=== PATIENT | male | born 1970 | race Caucasian/White ===

== ENCOUNTER 2022-01-05 12:47 | Outpatient (CLI) | payer BC, SELFPAY ==
[2022-01-05 21:36] LABS: Albumin* 4.5 g/dL (3.3-5.0)
[2022-01-05 21:37] LABS: Chloride* 102 mmol/L (96-114); Sodium* 138 mmol/L (135-149)
[2022-01-05 21:39] LABS: Bilirubin Total* 0.4 mg/dL (0.1-1.5); Carbon Dioxide* 30 mmol/L (20-32); Cholesterol* 261 mg/dL (90-199); Creatinine* 0.9 mg/dL (0.5-1.5); Estimated Glomerular Filt Rate 103 ml/min
[2022-01-05 21:40] LABS: Alanine Aminotransferase* 29 U/L (4-50); Alkaline Phosphatase* 98 U/L (40-150); Aspartate Amino Transferase* 26 U/L (12-35); Blood Urea Nitrogen* 19 mg/dL (7-30); Glucose* 101 mg/dL (60-115); Total Protein* 7.2 g/dL (6.0-8.3); Triglycerides* 217 mg/dL (40-149)
[2022-01-05 21:41] LABS: Calcium* 9.6 mg/dL (8.4-10.6); HDL Cholesterol* 44 mg/dL (>=40); LDL Cholesterol Calculated 174 mg/dL (<100)
== END 2022-01-05 12:48 | disposition home or self-care (01) ==
PROVIDERS: PCP Physician Assistant Medical; Visit Provider Physician Assistant Medical
DX: E78.5 Hyperlipidemia, unspecified (principal)
CPT/HCPCS: 80053; 80061

== ENCOUNTER 2023-01-13 09:19 | Outpatient (CLI) | payer BC, SELFPAY | END 2023-01-13 09:20 | disposition home or self-care (01) | PROVIDERS: PCP Physician Assistant Medical; Visit Provider Family Medicine | DX: Z00.00 Encounter for general adult medical examination without abnormal findings (principal); E78.2 Mixed hyperlipidemia; Z12.5 Encounter for screening for malignant neoplasm of prostate | CPT/HCPCS: 80048; 80061; 84153 ==

== ENCOUNTER 2023-03-09 19:42 | Outpatient (CLI) | payer BC, SELFPAY ==
--- NOTE | 2023-03-29 09:03 | W.PM.SLEEP ---
Sleep Study Details Details Interpreting Provider: Jackie Date of Sleep Study: 03/09/23 Sleep Study Details: STUDY TYPE:? Home unattended ? BMI:? 29.8 ORDERING PROVIDER:Kristina Mejia INDICATION:? Concerns about sleep apnea ? SLEEP SUMMARY:? 236 minutes monitored RESPIRATORY SUMMARY:? AHI 5.1. Majority of study was done in the supine position PERIODIC LIMB MOVEMENTS OF SLEEP:? Not recorded during home study CARDIAC:? Range 56-89, mean 65.1 IMPRESSION:? Mild obstructive sleep apnea RECOMMENDATION: If the patient is symptomatic treatment options would consist of CPAP, dental appliance and/or airway expansion surgery.
== END 2023-03-09 19:43 | disposition home or self-care (01) ==
LOC: SLEEP 19:43
PROVIDERS: PCP Physician Assistant Medical; Visit Provider Otolaryngology
DX: G47.33 Obstructive sleep apnea (adult) (pediatric) (principal)
CPT/HCPCS: 95806

== ENCOUNTER 2024-02-10 10:00 | Outpatient (CLI) | payer BC, SELFPAY | END 2024-02-10 10:01 | disposition home or self-care (01) | PROVIDERS: PCP Physician Assistant Medical; Visit Provider Nurse Practitioner Family | DX: Z00.00 Encounter for general adult medical examination without abnormal findings (principal); E78.2 Mixed hyperlipidemia; Z13.6 Encounter for screening for cardiovascular disorders; Z12.5 Encounter for screening for malignant neoplasm of prostate | CPT/HCPCS: 80053; 80061; G0103 ==

== ENCOUNTER 2025-02-04 07:55 | Outpatient (CLI) | payer BC, SELFPAY | END 2025-02-04 07:56 | disposition home or self-care (01) | LOC: NFLDREF 02-07 06:41 | PROVIDERS: PCP Nurse Practitioner Family; Referring Provider Nurse Practitioner Family; Visit Provider Family Medicine | DX: E78.2 Mixed hyperlipidemia (principal); Z13.9 Encounter for screening, unspecified | CPT/HCPCS: 80053; 80061; G0103 ==